=== PATIENT | female | born 1990 | race Caucasian/White ===

== ENCOUNTER 2024-04-15 18:51 | Emergency (ER) | payer OTHER ==
[~2024-04-15] VITALS: Ht 137.2 cm; Wt 94.5 kg
[2024-04-15 19:25] VITALS: TEMP 98.6
[2024-04-15 20:29] LABS: BASOPHILS % (AUTO) 0.5 % (0.0-2.0); EOSINOPHILS % (AUTO) 2.3 % (1.0-6.0); HEMATOCRIT 47.1 % (36-46); HEMOGLOBIN 16.2 g/dL (12.0-16.0); LYMPHOCYTES # (AUTO) 2.1 K/uL (1.0-4.8); LYMPHOCYTES % (AUTO) 18.5 % (22.0-44.0); MEAN CORPUSCULAR HEMOGLOBIN 29.6 pg (26.0-34.0); MEAN CORPUSCULAR HGB CONC 34.4 G/dL (31.0-37.0); MEAN CORPUSCULAR VOLUME 86 fL (80-100); MONOCYTES # (AUTO) 0.5 K/uL (0.1-1.0); MONOCYTES % (AUTO) 4.8 % (2.0-9.0); NEUTROPHILS # (AUTO) 8.4 K/uL (1.8-7.7); NEUTROPHILS % (AUTO) 73.9 % (40.0-70.0); PLATELET COUNT (AUTO) 314 K/uL (150-450); RED BLOOD CELL COUNT(AUTO) 5.47 MIL/uL (4.00-5.20); RED CELL DISTRIBUTION WIDTH 12.9 % (11.5-14.5); WHITE BLOOD COUNT (AUTO) 11.4 K/uL (4.5-11.0)
[2024-04-15 20:36] LABS: ANION GAP 9 mmol/L (8-16); CALCIUM, TOTAL 8.4 mg/dL (8.8-10.5); CARBON DIOXIDE 27 mmol/L (22-29); CHLORIDE 102 mmol/L (98-107); CREATININE 0.97 mg/dL (0.60-1.30); GLOMERULAR FILTR. RATE CALC > 60 mL/min (>60); GLUCOSE,RANDOM 117 mg/dL (70-110); POTASSIUM 3.7 mmol/L (3.5-5.1); SODIUM SERUM 138 mmol/L (136-145); UREA NITROGEN, BLOOD 18 mg/dL (7-18)
[2024-04-15 20:49] LABS: HCG,QUANTITATIVE < 1 mIU/mL (0-6); LIPASE 34 U/L (16-77)
[2024-04-15 21:00] VITALS: BP 110/63; PULSE 80; RESP 17; O2SAT 98
[2024-04-15 21:28] LABS: ALANINE AMINOTRANSFERASE 59 U/L (12-78); ALBUMIN 3.7 g/dL (3.4-5.0); ALKALINE PHOSPHATASE 103 U/L (46-116); ASPARTATE AMINOTRANSFERASE 45 U/L (15-37); BILIRUBIN,TOTAL 0.5 mg/dL (0.1-1.0); TOTAL PROTEIN, SERUM 7.3 g/dL (6.4-8.2)
[2024-04-15] MEDS: PB/HYOSCY/ATR/SCOP/LIDO/MAALOX 55 ML BOTTLE PO ONE (21:28)
[2024-04-15] MEDS: ONDANSETRON HCL 4 MG/2 ML VIAL IVP ONE (21:28)
[2024-04-15] MEDS: SODIUM CHLORIDE 0.9% 1,000 ML IV ONE (21:28)
[2024-04-15 22:14] LABS: COVID AG,FIA SOURCE NASAL SWAB
[2024-04-15] MEDS: KETOROLAC TROMETHAMINE 30 MG/ML VIAL IVP ONE (22:35)
[2024-04-15 22:37] LABS: SARS-COV2 (COVID) ANTIGEN,FIA Negative (Negative)
[2024-04-15 22:38] LABS: APPEARANCE,URINE HAZY (CLEAR); BILIRUBIN,URINE NEGATIVE (NEGATIVE); COLOR,URINE COLORLESS (YELLOW); GLUCOSE, URINE (UA) NEGATIVE (NEGATIVE); KETONES,URINE NEGATIVE (NEGATIVE); LEUKOCYTE ESTERASE ,URINE NEGATIVE (NEGATIVE); NITRATE,URINE NEGATIVE (NEGATIVE); OCCULT BLOOD,URINE LARGE (NEGATIVE); PH,URINE 6.5 (5.0-8.0); PROTEIN,URINE NEGATIVE (NEGATIVE); SPECIFIC GRAVITIY, URINE 1.014 (1.003-1.030); UROBILINOGEN,URINE <=1.0 mg/dL (<=1.0)
[2024-04-15 22:38] LABS: INFLUENZA TYPE A NEGATIVE FOR TYPE A (NEGATIVE); INFLUENZA TYPE B NEGATIVE FOR TYPE B (NEGATIVE)
[2024-04-15 23:15] LABS: RBC,URINE 51-100 /HPF (0-2); WBC,URINE 0-2 /HPF (0-5)
[2024-04-15 23:16] LABS: BACTERIA,URINE Rare /HPF (None Seen)
[2024-04-16] MEDS ORDERED: OMEP20 PO (00:25)
[2024-04-16] MEDS ORDERED: ONDA-104 PO (00:25)
[2024-04-16] MEDS ORDERED: CEPH-558 PO (00:25)
[2024-04-16] MEDS ORDERED: ACET-2080 PO (00:25)
== END 2024-04-16 00:58 | disposition home or self-care (01) ==
LOC: EMS 18:51
DX: K80.70 Calculus of gallbladder and bile duct without cholecystitis without obstruction (principal); J45.909 Unspecified asthma, uncomplicated; Z79.899 Other long term (current) drug therapy; Z98.891 History of uterine scar from previous surgery; Z20.822 Contact with and (suspected) exposure to COVID-19
CPT/HCPCS: 99285; 96374; 76700; 96361; 96375; 87426; 80048; 80076; 81001; 83690; 84702; 85025; 87804; 36415; J1885; J2405; J7030